=== PATIENT | male | born 1990 | race Caucasian/White ===

== ENCOUNTER 2020-08-13 15:17 | Outpatient (REF) | payer MEDICAID, SELFPAY | END 2020-08-13 15:18 | disposition home or self-care (01) | LOC: NCHCN 15:17 | PROVIDERS: Visit Provider Nurse Practitioner Family | DX: L02.214 Cutaneous abscess of groin (principal) | CPT/HCPCS: 87077; 87070; 87205 ==

== ENCOUNTER 2020-08-16 01:44 | Emergency (ER) | payer MEDICAID, SELFPAY ==
[2020-08-16 01:47] VITALS: BP 173/87; PULSE 100; RESP 18; TEMP 36.5; O2SAT 97
--- NOTE | 2020-08-16 01:55 | W.ED.GENAD ---
Discharge Plan Disposition Patient Disposition: HOME Condition: Good Discharge Details Clinical Impression: Folliculitis Primary Care Provider: Unknown,Unknown ED Provider: Gomez Holden Home Meds and New Rx's Prescriptions: New clindamycin HCl 150 mg capsule 450 mg PO QID 7 Days Qty: 84 RF: 0 Discontinued sulfamethoxazole-trimethoprim [Bactrim] 400-80 mg Tablet 400 tab PO BID RF: 0 Discharge Instructions Instructions: Folliculitis (ED) Additional Instructions: At this time you have a mild infection of the follicles for your hair. The bacteria appears to be resistant to the antibiotic that you are using. Please take the clindamycin as directed. 3 tablet every 6 hours. Please take a yogurt with live culture like activity a yogurt to prevent any diarrhea. Please continue to take ibuprofen for any chills. If your chills continue and you do develop a cough or shortness of breath please get Covid tested. At this time though your symptoms appear to be consistent with an infection secondary to the folliculitis. If you notice any worsening of your symptoms, or any new symptoms such as vomiting, diarrhea, fever, chills, shortness of breath, chest pain, numbness, weakness, or fainting , please return immediately to the emergency department for reevaluation. Please follow up with your primary care provider as soon as possible for reassessment and reevaluation. As always, it was a pleasure participating in your medical care today. Medical Decision Making This is a pleasant 29-year-old male who presents for chills and folliculitis. Patient was diagnosed with folliculitis 3 days ago at an urgent care, he was started on Bactrim. Unfortunately in spite of this he has had continued mild redness and now subsequent chills that began today. He denies fever but did feel very cold and had shakes earlier today. He took ibuprofen and this did help his symptoms. He denies any diarrhea or vomiting. He denies any headache or neck pain. He denies any cough or shortness of breath. No exposure to anyone with Covid. No other complaints at this time. He has been taking the antibiotic Bactrim as directed by the urgent care. He denies any recent STDs, he denies any dysuria. He denies any STDs for sexual partner. He denies any scrotal or penile pain. Lesions are located just on his suprapubic region and around the base edge of his penis, both of the regions were where he shaved just the day before the symptoms started. It was a used a razor, but states that it was his own. He does admit to problems like this in the past. Physical exam demonstrates a few small lesions on the suprapubic region and at the base of his penis. Mild lymphadenopathy in the right inguinal region. No evidence of Monica's gangrene, penile or scrotal tenderness. No other abnormalities. Patient is afebrile here. Will recommend that he stops taking the Bactrim and start taking the clindamycin instead. Discussed clean habits and razor use. Discussed red flags which to return. No evidence of STDs or need for STD testing at this time. I have extensively reviewed the treatment plan and discharge instructions with the patient. I have addressed all patient concerns at this time. The patient was made aware of what symptoms to monitor for that would warrant a return to the emergency department. Discussed the plan with the patient, they demonstrate verbal understanding and agreement with our assessment and plan at this time. The documentation in this chart was dictated using [employer] dictation software. Please excuse any dictation errors. HPI General Date/Time Provider Initiated Documentation: 08/16/20 01:46. HPI Narrative: This is a pleasant 29-year-old male who presents for chills and folliculitis. Patient was diagnosed with folliculitis 3 days ago at an urgent care, he was started on Bactrim. Unfortunately in spite of this he has had continued mild redness and now subsequent chills that began today. He denies fever but did feel very cold and had shakes earlier today. He took ibuprofen and this did help his symptoms. He denies any diarrhea or vomiting. He denies any headache or neck pain. He denies any cough or shortness of breath. No exposure to anyone with Covid. No other complaints at this time. He has been taking the antibiotic Bactrim as directed by the urgent care. He denies any recent STDs, he denies any dysuria. He denies any STDs for sexual partner. He denies any scrotal or penile pain. Lesions are located just on his suprapubic region and around the base edge of his penis, both of the regions were where he shaved just the day before the symptoms started. It was a used a razor, but states that it was his own. He does admit to problems like this in the past. Related Data Home Medications Medication Instructions Recorded Confirmed clindamycin HCl 450 mg PO QID 7 Days #84 cap 08/16/20 Previous Rx's Medication Instructions Recorded clindamycin HCl 450 mg PO QID 7 Days #84 cap 08/16/20 Allergies Allergy/AdvReac Type Severity Reaction Status Date / Time codeine Allergy Swelling/Ed Unverified 08/16/20 01:56 nanette Review of Systems All systems reviewed & are unremarkable except as noted in HPI and below [facility] Social History Smoking/Tobacco Use Status: Current every day Tobacco Type: e-cigarettes Smoking risk assessment performed?: Yes Alcohol Intake: current Alcohol Intake frequency: a few times a month Substance use type: does not use Do you feel safe at home: Yes Do you feel safe in your relationship?: Yes Exam Narrative Exam Narrative: 1.Const: Well-nourished, Well-developed, appearing stated age 2.Eyes: PERRL, no conjunctival injection, and symmetrical lids. 3.ENT: Atraumatic external nose and ears. Moist MM. Neck: Symmetric, trachea midline, No thyromegaly. 4.CVS: +S1/S2, No murmurs or gallops. Peripheral pulses 2+ and equal in all extremities. Brisk capillary refill in all extremities. 5.RESP: Unlabored respiratory effort. Clear to auscultation bilaterally. No wheezes rales or rhonchi 6.GI: Soft, Nontender/Nondistended, No hepatosplenomegaly. No guarding or rebound. 7.MSK: Normocephalic/Atraumatic, Extremities w/o deformity or ttp No cyanosis or clubbing, Normal movement of all extremities 8.Skin: Warm, Dry. Patient has a few small folliculitis 3 lesions on his suprapubic region and around the base of his penis. No evidence of herpes. Negative Nikolsky sign. No large vesicles or bulla. No palpable purpura. No oral lesions. No mucosal lesions. No evidence of severe cellulitis. No evidence of vaccine preventable rash. No scrotal tenderness. No penile tenderness. 9.Neuro: mounter flutes and piccolos II-XII grossly intact. Sensation grossly intact, no focal neurologic deficits. 10.Psych: (AAO) x3. Appropriate mood and affect
[2020-08-16] MEDS: Cephalexin 500 MG CAP, 4 CAPS/BTL PO (02:07)
--- NOTE | 2020-08-16 02:08 | NUR.NOTE ---
Nursing Note: Dr Holden changed antibiotic. Took Clindamycin bottle back and gave keflex and bottle to go home with RX
== END 2020-08-16 02:20 | disposition home or self-care (01) ==
LOC: ER 02:05
PROVIDERS: Emergency Provider Student in an Organized Health Care Education/Training Program
DX: L73.8 Other specified follicular disorders (principal); B95.1 Streptococcus, group B, as the cause of diseases classified elsewhere; Z16.39 Resistance to other specified antimicrobial drug
CPT/HCPCS: 99283

== ENCOUNTER 2020-08-18 07:53 | Emergency (ER) | payer MEDICAID, SELFPAY ==
[2020-08-18 07:58] VITALS: PULSE 88; RESP 12; TEMP 36.6; O2SAT 99
[2020-08-18 08:12] VITALS: RESP 14
--- NOTE | 2020-08-18 08:12 | ED.GENADUL_ITS ---
Discharge Plan Disposition Patient Disposition: HOME Condition: Stable Discharge Details Clinical Impression: Folliculitis Primary Care Provider: Unknown,Unknown ED Provider: Regan Betancourt Home Meds and New Rx's Prescriptions: Continued cephalexin 500 mg capsule 500 mg PO QID 7 Days Qty: 28 RF: 0 Discharge Instructions Instructions: Folliculitis (ED) Additional Instructions: At this time your overall body wide symptoms seem to be improving and I do believe that the cephalexin is working. Continue cephalexin as directed. Warm soaks and/or compresses every 2 hours for 20 minutes. [id number] Tylenol and/or Motrin as directed for any discomfort. I have extremely low suspicion for herpes; however, we did swab the area and the results are typically resulted in the next 2-3 days. I have also placed you on the care management list to help expedite outpatient primary care follow-up. Please watch for new or worsening symptoms and return to the ER for any concerns. Medical Decision Making This is a 29-year-old gentleman who presents reporting overall symptoms are improving Keflex however they have not resolved and the rash has a few blisters now today than it did 2 days ago. He was initially seen in urgent care and placed on Bactrim, had chills at that time. He was subsequently seen in the ER, after culture sensitivity reviewed, patient placed on cephalexin. He did have mild lymphadenopathy at that time. Today he denies chills, fatigue, any lymphadenopathy whatsoever. He denies any new sexual partners or risk of STD. Denies penile discharge, pain or swelling in his testicles or scrotum. No evidence of Monica's gangrene. No evidence of localized cellulitis. Patient appears well, nontoxic, is afebrile. At this time I have an extremely low suspicion for STD however given he does have patchy intact blisters, I do believe obtaining herpes swab is reasonable. Patient does not complain of any pain. He has no shallow ulcers. I do believe that his examination today is consistent with folliculitis and he is being treated with the appropriate antibiotics. His systemic symptoms are improving and he has no localized lymphadenopathy. Discussed the importance of continuing his appropriate antibiotic therapy, we discussed warm compresses or sitz bath's. He reports that it is simply in a challenging area because of underwear and pants rubbing and friction of walking. We discussed in length signs and symptoms to return to the ER. I have also placed him on the care management list to help expedite outpatient primary care follow-up. Patient has no additional questions or concerns at this time Patient understands that the herpes test is a send out and will likely not be resulted in the next 2-3 days. Medical Records Medical records reviewed: Yes I reviewed the patient's medical records. HPI General Mode of arrival: ambulatory . Date/Time Provider Initiated Documentation: 08/18/20 08:06 . Limitations to Documentation: no limitations . Information obtained by: patient . HPI Narrative: This is a 29-year-old gentleman presenting to the ER for evaluation. He states initially his symptoms began after shaving with a used razor, approximately 6 days ago. Symptoms began the following day. He developed a rash at the location that he shaved. He subsequently developed general fatigue and chills, no documented fever. He was evaluated at the urgent care 5 days ago, diagnosed with folliculitis and placed on the Bactrim. He was subsequently seen in our ER 2 days ago, after reviewing previous culture sensitivities, switched to cephalexin. He states that since being on the cephalexin, overall he is feeling better. He no longer feels as tired, denies any chills, and the lymph nodes in his groin are no longer swollen. He states that the initial area of folliculitis appears to be improving and in a healing stage subsequently around that area he is now developing additional rash and blisters. He denies any discomfort at the site of this rash. He denies any new sexual partners, concern for STD, fever, abdominal pain, back pain, penile discharge, pain in his scrotum or testicles. Related Data Home Medications Medication Instructions Recorded Confirmed cephalexin 500 mg PO QID 7 Days #28 cap 08/16/20 08/18/20 Previous Rx's Medication Instructions Recorded cephalexin 500 mg PO QID 7 Days #28 cap 08/16/20 Allergies Allergy/AdvReac Type Severity Reaction Status Date / Time codeine Allergy Swelling/Ed Unverified 08/18/20 08:05 nanette General Stated Complaint: GenMedical HAYLEY: 4 Review of Systems Constitutional Constitutional: Denies chills, Denies fever(s) and Denies malaise Gastrointestinal Gastrointestinal: Denies abdominal pain, Denies nausea and Denies vomiting Genitourinary Genitourinary: Denies hematuria, Denies genital pain, Denies dysuria, Denies penile discharge and Denies scrotal swelling Musculoskeletal Musculoskeletal: Denies back pain Integumentary/Breasts Skin/Breast: Denies rash [facility] Social History Smoking/Tobacco Use Status: Current every day Tobacco Type: e-cigarettes Smoking risk assessment performed?: Yes Alcohol Intake: current Alcohol Intake frequency: a few times a month Drug use: Never Substance use type: does not use Do you feel safe at home: Yes Do you feel safe in your relationship?: Yes Exam Const General: cooperative, healthy appearing, comfortable and no acute distress Orientation: alert, awake and oriented x3 HENMT Head: normal to inspection, normocephalic and atraumatic Eyes General: appearance normal, both eyes and all related structures Conjunctivae: conjunctivae normal Sclera: sclerae normal Neck Neck: normal visual inspection, full ROM, trachea midline and supple Resp Effort & Inspection: normal respiratory effort and able to speak in complete sentences GI Inspection: normal to inspection Palpation: soft and nontender Male General Exam: No ecchymosis, No edema, No erythema, No hernia, No inguinal lymphadenopathy, Yes lesions and No tenderness Penis: other Meatus: meatus normal Scrotum: scrotum normal Testes: normal Back/Spine/Pelvis Back: No back tenderness Skin Other: Warm, Dry. Patient has a few small patchy intact folliculitis and papular lesions on his suprapubic region and around the base of his penis bilaterally. No evidence of herpes. No shallow ulcers. Negative Nikolsky sign. No large vesicles or bulla. No palpable purpura. No oral lesions. No mucosal lesions. No evidence of severe cellulitis. No evidence of vaccine preventable rash. No scrotal tenderness. No penile tenderness. Neuro General: patient alert, patient awake, moves all extremities and no focal motor deficits Cognition: normal cognition Speech: speech normal Gait: normal gait Motor: muscle tone normal throughout Sensory Exam: no sensory deficits noted Extrem General: normal to inspection, full ROM and capillary refill normal Psych Appearance: grossly normal Mental Status: mental status grossly normal Course Vital Signs Vital signs: Vital Signs Temperature 36.6 C 08/18/20 07:58 Pulse 88 08/18/20 07:58 Respiratory Rate 12 08/18/20 07:58 Pulse Oximetry 99 08/18/20 07:58 Temperature 36.6 C 08/18/20 07:58 Temperature Source Skin 08/18/20 07:58 Pulse 88 08/18/20 07:58 Respiratory Rate 12 08/18/20 07:58 Pulse Oximetry 99 08/18/20 07:58 Oxygen Delivery Method Room Air 08/18/20 07:58 Oxygen Flow Rate 0 08/18/20 07:58 Pain Level 5 08/18/20 07:58
--- NOTE | 2020-08-18 08:38 | NUR.NOTE ---
Nursing Note: referral to care management to set up PCP, establish insurance and general resources
[2020-08-18 08:50] VITALS: BP 145/87; PULSE 87; RESP 14; TEMP 37.1; O2SAT 98
[2020-08-19 14:35] LABS: HSV 1 DNA Result Negative (Negative); HSV 2 DNA Result Positive (Negative)
== END 2020-08-18 08:50 | disposition home or self-care (01) ==
PROVIDERS: Emergency Provider Physician Assistant; PCP Nurse Practitioner Family
DX: L73.8 Other specified follicular disorders (principal)
CPT/HCPCS: 87529; 99282

== ENCOUNTER 2020-10-19 11:17 | Outpatient (REF) | payer MEDICAID, SELFPAY ==
[2020-10-20 18:45] LABS: HSV 1 DNA Result Negative (Negative); HSV 2 DNA Result Positive (Negative)
== END 2020-10-19 11:18 | disposition home or self-care (01) ==
LOC: NCHCN 11:17
PROVIDERS: PCP Nurse Practitioner Family; Visit Provider Nurse Practitioner Family
DX: N50.89 Other specified disorders of the male genital organs (principal)
CPT/HCPCS: 87529